=== PATIENT | male | born 1965 | race Caucasian/White ===

== ENCOUNTER 2023-03-24 13:11 | Emergency (ER) | payer OTHER, SELFPAY ==
[2023-03-24 13:19] VITALS: BP 156/84
[2023-03-24 13:35] LABS: % Basophils 0.5 % (0-2); % Eosinophils 0.8 % (0-6); % Immature Granulocytes 0.5 % (0-0.5); % Monocytes 7.2 % (1.7-9.3); Absolute Eosinophils 0.1 10^3/uL (0-0.7); Absolute Lymphocytes 1.4 10^3/uL (1.2-3.4); Absolute Monocytes 0.4 10^3/uL (0.1-0.6); Absolute Neutrophils 4.1 10^3/uL (1.4-6.5); Hematocrit 44.9 % (39.0-52.0); Hemoglobin 15.4 g/dL (13.0-18.0); Mean Corp Hgb Conc. 34.3 g/dL (33.0-37.0); Mean Corpuscular Volume 87.5 fL (80.0-94.0); Mean Platelet Volume 9.1 fL (7.4-10.4); Nucleated Red Blood Cells % 0 % (-); Platelet Count 187 10^3/uL (130-400); Red Blood Cell Count 5.13 10^6/uL (4.70-6.10); White Blood Cell Count 6.1 10^3/uL (4.8-10.8)
[2023-03-24 14:00] LABS: Troponin I < 0.012 ng/ml
[2023-03-24 14:12] LABS: ALT (SGPT) 27 U/L (0-50); AST (SGOT) 33 U/L (17-59); Albumin 4.9 g/dl (3.5-5.0); Alkaline Phosphatase 71 U/L (38-126); Blood Urea Nitrogen 22 mg/dl (9-20); Calcium 10.3 mg/dl (8.4-10.2); Carbon Dioxide 29 mmol/L (22-30); Chloride 103 mmol/L (98-107); Glucose 95 mg/dl (70-99); Potassium 4.6 mmol/L (3.5-5.1); Sodium 138 mmol/L (135-145); Total Bilirubin 1.1 mg/dl (0.2-1.3); Total Protein 7.6 g/dl (6.3-8.2); eGFR > 60.00
[2023-03-24 17:29] VITALS: BP 136/91
--- NOTE | 2023-03-24 17:55 | ED.GENMED ---
History of Present Illness
General
Chief Complaint: Chest Pain
Source: patient and spouse
Exam Limitations: none
Time Seen by Provider: 03/24/23 17:19
Nursing documentation reviewed up to this point in time: agreed with
Travel History
Have you had any contact with someone who has COVID-19?: No
Do you have any symptoms of coronavirus? Fever > 100 degrees, chills, cough, shortness of breath, sore throat, loss of taste or smell, muscle aches, or headache?: No
History of Present Illness
History of Present Illness:
58-year-old male with history of migraines, prostate cancer, early onset Alzheimer's getting infusions every other week of Leqembi, last infusion 03/13, due 03/27 for next. Was at gym, just finished run/walking 4 miles on treadmill when he had pain
across mid chest and left arm with 'hot feeling' and mild nausea. Episode lasted 10 minutes. None since.
Past History
Past History
ED Past Medical History: Cancer (prostate) and Psychiatric (Early onset Alzheimer's)
ED Past Surgical History: Orthopedic and Urological (prostatectomy 06/2020)
Social History
Tobacco: Non-smoker
Alcohol: None
Drug: None
Personal:
Living: with family
Review of Systems
Review of Systems
Allergies reviewed?: Yes
All Other Systems: ROS reviewed and negative except as documented in HPI and ROS
Constitutional: Denies fever, fatigue or chills
Respiratory: Denies trouble breathing
Cardiac: Reports chest pain; Denies diaphoresis, palpitations or syncope
ABD/GI: Reports nausea; Denies abdominal pain or vomiting
: Reports no symptoms
Musculoskeletal: Reports no symptoms
Skin: Reports no symptoms
Neurological: Reports no symptoms
Phy Exam
Physical Exam
Physical Exam:
GENERAL: No acute distress. A&Ox3.
CONSTITUTIONAL: Afebrile.
EYES:clear, conjunctivae normal
RESPIRATORY: Regular respirations, nonlabored, lungs clear.
CARDIOVASCULAR: Regular rate and rhythm, no murmurs, no rubs.
GI: Soft, nontender, normal BS
MUSCULOSKELETAL: Moves with ease. Well perfused.
SKIN: Warm, dry, pink
PSYCH: Normal mood and affect. Well kept, interactive and appropriate
NEUROLOGIC: Awake, alert and oriented. No focal neurological deficits
Scores
Heart Score for Chest Pain Patients
STEMI patient?: No
History: Slightly or Non-Suspicious
ECG: Normal
Age: >45 - <65 years
Risk Factors: No Risk Factors
Troponin: </= Normal Limit
Heart Score for Chest Pain Patients: 1
Heart Score Risk: 2.5% MACE over next 6 weeks
Course
Orders/Labs/Results
Orders:
Orders
03/24/23 13:14
Electrocardiogram (*1) Urgent
Reason for Study: Chest Pain
EKG- Treatment ONCE
03/24/23 13:27
Complete Blood Count/With Diff Urgent
Comprehensive Metabolic Panel Urgent
Troponin I Urgent
03/24/23 16:52
CR Chest - 2 Views Urgent
Comment:
Reason For Exam: chest pain
03/24/23 18:18
Troponin I Urgent
03/24/23 18:43
Electrocardiogram (*1) Urgent
Reason for Study: Chest Pain
Other Reason for Exam: repeat with 2nd trop
EKG- Treatment ONCE
Abnormal Lab Results
03/24/23
13:27
BUN 22 H mg/dl
(9-20)
Calcium 10.3 H mg/dl
(8.4-10.2)
03/24/23 13:27
03/24/23 13:27
Vital Signs
Initial and Last Documented VS:
Initial Vital Signs
Temp Pulse Resp BP Pulse Ox
97.8 F 54 16 156/84 98
03/24/23 13:19 03/24/23 13:19 03/24/23 13:19 03/24/23 13:19 03/24/23 13:19
Last Documented Vital Signs
Temp Pulse Resp BP Pulse Ox
97.8 F 54 13 160/94 99
03/24/23 13:19 03/24/23 19:08 03/24/23 17:30 03/24/23 19:08 03/24/23 17:30
MDM/Problems Addressed
Differential Diagnosis Includes:
ACS, angina, musculoskeletal pain
MDM/Problems Addressed:
58-year-old male with history of migraines, prostate cancer, prostatectomy, early onset Alzheimer's getting infusions every other week of Leqembi, last infusion 03/13, due 03/27 for next. Was at gym, just finished run/walking 4 miles on treadmill when
he had pain across mid chest with 'hot feeling' and mild nausea. Episode lasted 10 minutes. None since.
Afebrile, asymptomatic, NAD
03/24/2023 1730 PM
CBC normal
CMP normal
Troponin #1 normal
EKG sinus bradycardia unchanged from last
03/24/2023 1859 PM
Second EKG unchanged
Troponin #2 normal
Patient referred to cardiac chest pain hotline
*Critical Care Note
Total Time (30-74mins, 75-104mins- exclusive of procedures): Not Applicable
ED Attending Note
-
Portions of this chart may have been created with voice recognition software.� Occasional wrong word or��sound alike� substitutions may have occurred due to the inherent limitations of voice recognition software.
Discharge Plan
Departure
Patient Disposition: Home (Routine Discharge)
Date of Disposition: 03/24/23
Time of Disposition: 19:00
Patient with high blood pressure during this ER visit?: Yes
Condition: Good
Discharge Problem:
Atypical chest pain
Instructions: Chest Pain DCA Follow Up, BLOOD PRESSURE
Prescriptions:
No Action
phenazopyridine 200 MG tablet
200 mg PO TIDPRN PRN (Reason: burning with urination) Qty: 15 0RF
Referrals:
Gallito Larkin MD [Active] - Next open appointment
Brian Mittal MD [Active] - Next open appointment
Activity Restrictions/Additional Instructions:
As we discussed, nothing worrisome in your workup here today. Specifically no indication of a heart attack.
Someone from the cardiology office should call you within the next day or 2 to set up a more thorough cardiac evaluation
Return here immediately for worsening chest pain or feeling worse in any way
Interventions
Interventions:
*Risk Screen - Suicide Last Done: 03/24/23 13:19
*General Assessment Last Done: 03/24/23 13:19
*Neglect/Abuse Screening Last Done: 03/24/23 13:19
ED- Fall Risk Assessment Last Done: 03/24/23 17:26
*ED COVID-19 Vaccine History Last Done: 03/24/23 17:26
*Nursing Disposition Last Done: 03/24/23 19:08
ED- Cardiac Assessment Last Done: 03/24/23 17:26
Discharge Date and Time
Discharge Date/Time: 03/24/23 19:09
[2023-03-24 18:48] LABS: Troponin I < 0.012 ng/ml
[2023-03-24 18:52] VITALS: BP 160/94
[2023-03-24 19:07] VITALS: BP 160/94
[2023-03-24 19:08] VITALS: BP 160/94
== END 2023-03-24 19:09 | disposition home or self-care (01) ==
LOC: EMR 13:11
PROVIDERS: Registered Nurse; Student in an Organized Health Care Education/Training Program; EMERGENCY PHYSICIAN Emergency Medicine; FAMILY PHYSICIAN Family Medicine
DX: R07.89 Other chest pain (principal); R03.0 Elevated blood-pressure reading, without diagnosis of hypertension
CPT/HCPCS: 99285; 71046; 80053; 84484; 85025; 93005

== ENCOUNTER → 2023-03-28 16:29 | Outpatient (REF) | payer OTHER, SELFPAY | LOC: PAVMRI 16:29 | PROVIDERS: ATTENDING PHYSICIAN Psychiatry & Neurology Behavioral Neurology & Neuropsychiatry; FAMILY PHYSICIAN Family Medicine | DX: G30.9 Alzheimer's disease, unspecified (principal) | CPT/HCPCS: 70551 ==

== ENCOUNTER → 2023-04-30 11:47 | Outpatient (REF) | payer OTHER, SELFPAY | LOC: PAVMRI 11:47 | PROVIDERS: ATTENDING PHYSICIAN Psychiatry & Neurology Behavioral Neurology & Neuropsychiatry; FAMILY PHYSICIAN Family Medicine | DX: G30.9 Alzheimer's disease, unspecified (principal) | CPT/HCPCS: 70551 ==

== ENCOUNTER → 2023-08-11 18:33 | Outpatient (REF) | payer OTHER, SELFPAY | LOC: PAVMRI 18:33 | PROVIDERS: ATTENDING PHYSICIAN Psychiatry & Neurology Behavioral Neurology & Neuropsychiatry; FAMILY PHYSICIAN Family Medicine | DX: G30.9 Alzheimer's disease, unspecified (principal) | CPT/HCPCS: 70551 ==

== ENCOUNTER 2023-10-02 10:45 | Emergency (ER) | payer OTHER, SELFPAY ==
[2023-10-02 10:47] VITALS: BP 120/72
[2023-10-02 11:01] VITALS: BP 117/69
[2023-10-02] MEDS: NSS 1000 IV ×2 (11:14→14:22)
[2023-10-02 11:15] LABS: % Basophils 0.5 % (0-2); % Eosinophils 0.8 % (0-6); % Immature Granulocytes 0.5 % (0-0.5); % Lymphocytes 29.9 % (20.5-51.1); % Monocytes 7.5 % (1.7-9.3); % Neutrophils 60.8 % (42.2-75.2); Absolute Lymphocytes 1.2 10^3/uL (1.2-3.4); Absolute Monocytes 0.3 10^3/uL (0.1-0.6); Absolute Neutrophils 2.3 10^3/uL (1.4-6.5); Hemoglobin 14.3 g/dL (13.0-18.0); Mean Corp Hgb Conc. 35.8 g/dL (33.0-37.0); Mean Platelet Volume 9.7 fL (7.4-10.4); Nucleated Red Blood Cells % 0 % (-); Platelet Count 157 10^3/uL (130-400); Red Blood Cell Count 4.76 10^6/uL (4.70-6.10); Red Cell Dist. Width 12.6 % (11.5-14.5); White Blood Cell Count 3.9 10^3/uL (4.8-10.8)
[2023-10-02] MEDS: DILAUDID 1 MG IV (11:15)
[2023-10-02] MEDS: ZOFRAN 4 MG IV ×2 (11:15→14:23)
--- NOTE | 2023-10-02 11:20 | ED.GENMED ---
History of Present Illness
General
Chief Complaint: Flank Pain
Source: patient and family
Exam Limitations: dementia
Time Seen by Provider: 10/02/23 10:53
Nursing documentation reviewed up to this point in time: agreed with
History of Present Illness
History of Present Illness:
pt is a 58 y/o M with h/o early onset alzheimers dementia
sudden severe L back pain
started after returning home from the gym. he was by himself and drove home and when he got home spoke with his daughter and seemed fine, and then 10 min later called his son and said he was in severe kenny, pt was crying, saying his side/back hurt
son called 911
called and spoke with patient and also says he was in severe pain
pt is at his baseline mental status according to , he was having trouble answering some EMS questions but when he gts flustered
he doesn't recall hurting himself while at the gym
no radiation of pain seemingly in abdomen, groin, leg
no cp, sob
no fever
no h/o kidneystones but he does have some issues with mild CKD
Past History
Past History
ED Past Medical History: Cancer (prostate) and Psychiatric (Early onset Alzheimer's)
ED Past Surgical History: Orthopedic and Urological (prostatectomy 06/2020)
Social History
Tobacco: Non-smoker
Alcohol: None
Drug: None
Personal:
Living: with family
Review of Systems
Review of Systems
Allergies reviewed?: Yes
All Other Systems: Not applicable
Phy Exam
Physical Exam
Physical Exam:
GENERAL: Alert, uncomfortable, shifting inth estretcher
Neck: supple
CARDIAC: Regular rate and rhythm .
LUNGS: Clear breath sounds bilaterally, no acute respiratory distress, no wheezes/rales/rhonchi
ABDOMEN: Soft, normal bowel sounds, nondistended, nontender, no guarding, no rebound, neg soto's
back: nontnder, full rom of legs, strength and sensation intact
: normal inspection of region
nontender testicles b/l
no rashes
NEUROLOGICAL: Alert and oriented, no focal neuro deficits
SKIN: Warm and dry, skin intact.
PSYCH: Normal and appropriate interaction.
Course
Orders/Labs/Results
Orders:
Orders
10/02/23 11:05
CBC/With Diff [Complete Blood Count/With Diff] Urgent
CMP [Comprehensive Metabolic Panel] Urgent
Lipase Urgent
Comment: ADD ON
10/02/23 11:08
Ondansetron Injectable [Zofran] 4 mg .ROUTE .STK-MED ONE
10/02/23 11:09
HYDROmorphone [Dilaudid] 1 mg .ROUTE .STK-MED ONE
10/02/23 11:10
0.9% Sodium Chloride 1000 ml [Nss] 1,000 ml IV BOLUS
HYDROmorphone [Dilaudid] 1 mg IV NOW STA
Ondansetron Injectable [Zofran] 4 mg IV NOW STA
10/02/23 11:11
Add On- LAB Urgent
Tests Added?: lipase
Electrocardiogram (*1) Urgent
Reason for Study: Abdominal Pain
EKG- Treatment ONCE
10/02/23 11:43
Morphine Sulfate 4 mg IV NOW STA
10/02/23 11:58
Urinalysis Reflex To Culture Urgent
Date Specimen was Collected: 10/02/23
Time Specimen was Collected: 11:51
Urine Microscopic Reflex Cult Urgent
10/02/23 12:28
CT Abd/pel Without Iv Or Oral Urgent
Comment:
Reason For Exam: L sided back pain, severe suspect kidney stone
10/02/23 14:01
Tamsulosin [Flomax] 0.4 mg PO NOW STA
10/02/23 14:14
0.9% Sodium Chloride 1000 ml [Nss] 1,000 ml IV BOLUS
Ondansetron Injectable [Zofran] 4 mg IV NOW STA
Oxycodone/Acetaminophen [Percocet 5/325] 1 tablet PO NOW STA
Abnormal Lab Results
10/02/23 10/02/23
11:05 11:58
WBC 3.9 L 10^3/uL
(4.8-10.8)
BUN 25 H mg/dl
(9-20)
Creatinine 1.4 H mg/dL
(0.7-1.3)
Glucose 120 H mg/dl
(70-99)
Urine Ketones Trace A
(Negative)
Leukocyte Esterase Rfl Trace A
(Negative)
10/02/23 11:05
10/02/23 11:05
Vital Signs
Initial and Last Documented VS:
Initial Vital Signs
Temp Pulse Resp BP Pulse Ox
97.7 F 62 18 120/72 100
10/02/23 10:47 10/02/23 10:47 10/02/23 10:47 10/02/23 10:47 10/02/23 10:47
Last Documented Vital Signs
Temp Pulse Resp BP Pulse Ox
97.7 F 61 19 117/69 98
10/02/23 10:47 10/02/23 11:45 10/02/23 11:45 10/02/23 11:01 10/02/23 11:30
MDM/Problems Addressed
Differential Diagnosis Includes:
kidney stone, aortic dissection
MDM/Problems Addressed:
58 y/o M with h/o early onset dementia
from home via EMS for severe sudden L back pain nonradiating, diaprhoesis, nausea
pt got 15 mg of iv toradol but is in a lot of discomfort
recnet exercise at the gym
no h/o kidney stones but cr is usually 1.3 and he has seen nephrology
nothing makes it better
no fever, chills
normal vitals desite pt looking rather uncomfortable
normal strength and snesation to legs, unlikely dissection
seems to be c/w kidney stone, waxing waning renal colic
ivf, pain control, labs, urine ct..
Patient's IV dose of Dilaudid did not really helpful
cr 1.4, will avoid nsaids
he does seem to have periods of pain-fee time, which is likey from the colicky nature
the ct does show distal 2 mm stone with hydro (severe)
ua very reassuring no infection
wbc normal
this stone should pass
but pt seemed to be having worse pain again so i gave more IVF, flomax, ,oral oxy, zofran and will reassess
it seems like his dementia makes it hard for him to understrand what's zach on and he seems anxious and agitated by the pain and not remembering what it is due to
10/02/2023 1551 PM
Patient was resting comfortably. He still says he has some pain but it is controlled with pain medication orally. Will discharge home with oxycodone, Tylenol, Flomax, Zofran and family is aware to bring him back if he is having worsening pain.
Follow-up with urology encouraged. Strainer given
*Critical Care Note
Total Time (30-74mins, 75-104mins- exclusive of procedures): Not Applicable
ED Attending Note
-
Portions of this chart may have been created with voice recognition software.� Occasional wrong word or��sound alike� substitutions may have occurred due to the inherent limitations of voice recognition software.
Discharge Plan
Departure
Patient Disposition: Home (Routine Discharge)
Date of Disposition: 10/02/23
Time of Disposition: 15:45
Patient with high blood pressure during this ER visit?: No
Condition: Fair
Covid-19: Not Applicable
Discharge Problem:
Ureterolithiasis
Instructions: Kidney Stones (DC), How to Strain Your Urine
Prescriptions:
New
oxycodone 5 mg tablet
5 mg PO TID PRN (Reason: Pain) Qty: 15 0RF
ondansetron 4 mg tablet,disintegrating
4 mg PO Q8H PRN (Reason: nausea and vomiting) 2 Days Qty: 7 0RF
tamsulosin [Flomax] 0.4 mg capsule
0.4 mg PO DAILY Qty: 10 0RF
No Action
phenazopyridine 200 MG tablet
200 mg PO TIDPRN PRN (Reason: burning with urination) Qty: 15 0RF
Referrals:
Gallito Larkin MD [Active] - Follow up in 1 week
Angella Farrell MD [Family Provider] -
Activity Restrictions/Additional Instructions:
KEEP STAYING HYDRATED
TAKE FLOMAX 0.4 MG ONCE A DAY UNTIL YOU PASS THE STONE
URINATE THROUGH THE STRAINER EACH TIME YOU PEE
TAKE TYLENOL 2 EXTRA STRENGTH TABS 3 TIMES A DAY FOR PAIN
IF PAIN IS SEVERE YOU CAN TRY OXYCODONE 5 MG EVERY 6 HOURS NEEDED, THIS IS A NARCOTIC AND YOU CANNOT DRIVE OR DRINK ON THIS MEDICATION.
ZOFRAN EVERY 8 HOURS NEEDED FOR NAUSEA.
HOPEFULLY THE STONE PASSES WITHIN THE NEXT DAY
CALL UROLOGY FOR AN APPOINTMENT
RETURN FOR: SEVERE PAIN, VOMITING, FEVER, NOT URINATING OR ANY CONCERNS.
Interventions
Interventions:
*Risk Screen - Suicide Last Done: 10/02/23 10:47
*General Assessment Last Done: 10/02/23 10:47
*Neglect/Abuse Screening Last Done: 10/02/23 10:47
ED- Fall Risk Assessment Last Done: 10/02/23 10:48
HG-Cxaqpu-Sxjserriwq Assessment Last Done: 10/02/23 10:48
ED-Male Genitourinary Assessment Last Done: 10/02/23 10:48
Discharge Date and Time
Print Language: KINYARWANDA
[2023-10-02 11:30] LABS: ALT (SGPT) 19 U/L (0-50); AST (SGOT) 27 U/L (17-59); Albumin 4.5 g/dl (3.5-5.0); Alkaline Phosphatase 62 U/L (38-126); Blood Urea Nitrogen 25 mg/dl (9-20); Carbon Dioxide 22 mmol/L (22-30); Chloride 105 mmol/L (98-107); Estimated Creatinine Clearance 59 ml/min; Glucose 120 mg/dl (70-99); Lipase 94 U/L (23-300); Sodium 136 mmol/L (135-145); Total Bilirubin 1.3 mg/dl (0.2-1.3); Total Protein 6.7 g/dl (6.3-8.2); eGFR 58.99
[2023-10-02 12:15] LABS: Urine Albumin Negative (Neg - Trace); Urine Bilirubin Negative (Negative); Urine Character Clear (Clear); Urine Color Yellow; Urine Glucose Negative (Negative); Urine Ketone Trace (Negative); Urine Leukocyte Trace (Negative); Urine Nitrite Negative (Negative); Urine Occult Blood Negative (Negative); Urine Urobilinogen Negative (Neg - 1+)
[2023-10-02 12:36] LABS: Urine Squamous Cell 0-2 /LPF (Few)
[2023-10-02 12:37] LABS: Urine Red Blood Cell 0-2 /HPF (0-2); Urine White Cell 0-2 /HPF (0-5)
[2023-10-02 13:08] VITALS: BP 143/70
[2023-10-02] MEDS: MORPHINE SULFATE 4 MG IV (13:11)
[2023-10-02 14:00] VITALS: BP 106/70
[2023-10-02] MEDS: FLOMAX 0.4 MG PO (14:11)
[2023-10-02] MEDS: PERCOCET 5/325 1 TABLET PO (14:23)
[2023-10-02 15:00] VITALS: BP 149/81
== END 2023-10-02 16:27 | disposition home or self-care (01) ==
LOC: EMR 10:45
PROVIDERS: Physician Assistant; EMERGENCY PHYSICIAN Emergency Medicine; FAMILY PHYSICIAN Family Medicine
DX: M54.9 Dorsalgia, unspecified (principal); G30.0 Alzheimer's disease with early onset; F02.80 Dementia in other diseases classified elsewhere, unspecified severity, without behavioral disturbance, psychotic disturbance, mood disturbance, and anxiety; Z90.79 Acquired absence of other genital organ(s)
CPT/HCPCS: 99284; 96374; 96375; 96376; 96361; 74176; 80053; 81003; 81015; 83690; 85025; 93005

== ENCOUNTER 2024-10-18 16:47 | Inpatient (IN) | payer OTHER, SELFPAY ==
[2024-10-18] VITALS (26 sets, daily range): BP systolic 101–162; BP diastolic 58–109; BMI 25.6; BMI 24.9
[2024-10-18 12:15] LABS: Hematocrit 43.1 % (39.0-52.0); Hemoglobin 14.5 g/dL (13.0-18.0); Mean Corp Hgb Conc. 33.6 g/dL (33.0-37.0); Mean Corpuscular Volume 84.7 fL (80.0-94.0); Nucleated Red Blood Cells % 0 % (-); Platelet Count 206 10^3/uL (130-400); Red Cell Dist. Width 12.2 % (11.5-14.5)
[2024-10-18 12:29] LABS: ALT (SGPT) 17 U/L (0-50); AST (SGOT) 20 U/L (17-59); Albumin 4.7 g/dl (3.5-5.0); Alkaline Phosphatase 53 U/L (38-126); Blood Urea Nitrogen 16 mg/dl (9-20); Calcium 9.7 mg/dl (8.4-10.2); Carbon Dioxide 25 mmol/L (22-30); Chloride 104 mmol/L (98-107); Estimated Creatinine Clearance 68 ml/min; Glucose 146 mg/dl (70-99); Magnesium 2.2 mg/dl (1.6-2.3); Potassium 3.9 mmol/L (3.5-5.1); Sodium 138 mmol/L (135-145); Total Protein 7.1 g/dl (6.3-8.2); eGFR > 60.00
[2024-10-18 12:39] LABS: Troponin I < 0.012 ng/ml
--- NOTE | 2024-10-18 12:44 | ED.GENMED ---
History of Present Illness
General
Chief Complaint: Dizziness
Source: patient
Exam Limitations: none
Time Seen by Provider: 10/18/24 12:25
History of Present Illness
History of Present Illness:
59-year-old male to with history of early onset dementia presents with family after family noticed at 10 AM this morning he had a change in mental status. He has been responding to their questions. He typically is able to talk and hold a
conversation but there is something new. He is on the infusion Leqembi which is known to cause potential microhemorrhages or hemorrhages in the brain. His last infusion was 3 weeks ago. Patient unable to tell me if he has a headache. There was
vomiting prior to presentation. No fevers or illness recently.
Past History
Past History
ED Past Medical History: Cancer (prostate) and Psychiatric (Early onset Alzheimer's)
ED Past Surgical History: Orthopedic and Urological (prostatectomy 06/2020)
Social History
Tobacco: Non-smoker
Alcohol: None
Drug: None
Personal:
Living: with family
Phy Exam
Physical Exam
Physical Exam:
General: Well-developed male no acute respiratory distress
HEENT normocephalic face is symmetric mucosa moist heart: Regular rate and rhythm
Lungs: Clear no wheeze
Neurologic exam: Responds to questions. No obvious unilateral deficit. Pupils equal round reactive to light
Extremities: No cyanosis
Course
Orders/Labs/Results
Orders:
Orders
10/18/24 11:48
EKG [Electrocardiogram (*1)] Urgent
Reason for Study: Chest Pain
10/18/24 11:49
EKG- Treatment ONCE
10/18/24 11:51
Complete Blood Count/With Diff Urgent
Comprehensive Metabolic Panel Urgent
Magnesium Urgent
Troponin I Urgent
10/18/24 12:40
CT Head W/o Iv Contrast Urgent
Comment:
Reason For Exam: altered mental status
10/18/24 12:46
Urinalysis Reflex To Culture Urgent
Date Specimen was Collected: 10/18/24
Time Specimen was Collected: 12:49
Abnormal Lab Results
10/18/24
11:51
Absolute Monos (auto) 0.8 H 10^3/uL
(0.1-0.6)
Monocytes % 16.1 H %
(1.7-9.3)
Glucose 146 H mg/dl
(70-99)
10/18/24 11:51
10/18/24 11:51
Vital Signs
Initial and Last Documented VS:
Initial Vital Signs
Temp Pulse Resp BP Pulse Ox
98.6 F 59 17 135/77 97
10/18/24 11:43 10/18/24 11:43 10/18/24 11:43 10/18/24 11:43 10/18/24 11:43
Last Documented Vital Signs
Temp Pulse Resp BP Pulse Ox
98.6 F 64 16 135/77 97
10/18/24 11:43 10/18/24 11:48 10/18/24 11:48 10/18/24 11:43 10/18/24 12:46
MDM/Problems Addressed
Differential Diagnosis Includes:
Sudden onset and change mental status. History of early onset dementia now with difficulty talking almost aphasic. No unilateral weakness noted otherwise. He is on Leqembi which can cause microhemorrhages. CT of the head was ordered and
discussed with neurology who recommends admitting and starting steroids for possible ARIA findings related to the medications.
*Pulse Oximetry
SaO2: 97
Oxygen Mode of Delivery: Room air
Patient hypoxic: no
*Critical Care Note
Total Time (30-74mins, 75-104mins- exclusive of procedures): Not Applicable
Update Note
Update Note:
CT of the head shows no acute intracranial findings. Patient reexamined. Still off from baseline. Discussed with neurology who recommends admitting the patient for an MRI of his brain to evaluate for possible amyloid related imaging abnormalities
secondary to the Leqembi. Hospitalist made aware.
ED Attending Note
-
Portions of this chart may have been created with voice recognition software.� Occasional wrong word or��sound alike� substitutions may have occurred due to the inherent limitations of voice recognition software.
Discharge Plan
Departure
Patient Disposition: Admit
Date of Disposition: 10/18/24
Time of Disposition: 13:17
Presentation/result/management discussed w/ accepting MD/DO: Hospitalist
Patient with high blood pressure during this ER visit?: No
Discharge Problem:
Altered mental status
Prescriptions:
No Action
donepezil 5 mg Tablet
5 mg PO HS
escitalopram oxalate 10 mg Tablet
10 mg PO DAILY
memantine 10 mg Tablet
10 mg PO BID
brexpiprazole 2 mg Tablet
2 mg PO DAILY
Leqembi 100 mg/mL Solution
600 mg IV Q2W
Interventions
Interventions:
*Risk Screen - Suicide Last Done: 10/18/24 11:43
*General Assessment Last Done: 10/18/24 11:43
*Neglect/Abuse Screening Last Done: 10/18/24 11:43
*ED- Fall Risk Assessment Last Done: 10/18/24 11:43
*ED COVID-19 Vaccine History Last Done: 10/18/24 11:43
ED- Neurological Assessment Last Done: 10/18/24 11:43
ED- Cardiac Assessment Last Done: 10/18/24 11:43
ED Swallowing Screen Last Done: 10/18/24 11:43
Discharge Date and Time
Print Language: ROMANSH
--- NOTE | 2024-10-18 14:09 | PHANOTE ---
med rec note- patient spouse stated he stopped rexulti 2mg daily about 4 days ago and b12 vitamin about 2 days ago
[2024-10-18 14:50] LABS: Urine Character Clear (Clear)
[2024-10-18 15:20] LABS: Urine Red Blood Cell 0-2 /HPF (0-2)
--- NOTE | 2024-10-18 15:22 | HPS.HSE ---
Addendum entered and electronically signed by Kris Walker MD 10/18/24 20:12:
Attending Addendum-
I performed a history and physical exam of the patient and discussed his management with the resident. I reviewed the resident's note and agree with the documented findings and plan of care CC/HPI-Patient arrived to ED via EMS due to cims this am.
Family present on history taking. Per family patient wasn't acting himself was dizzy and 'couldn't move his legs' was also seen to have eyes roll back in the back of his head. Self resolved. prior to seizure patient was conversant with no aura or
complaints. Does have poor memory at baseline subsequently had a few more seizure episodes in the ed. was given total @ 15 of versed, keppra load, and decision was made to start ketamine and transfer to ICU. Full 12 point ROS reviewed and negative
except as documented Exam- vitals reviewed in EMR GEN- NAD heart RRR lungs clear abd soft LE no edema AAO x 1 MS 5/5 sensation intact no tongue lac no tremor
Plan:
# Refractory Status Epilepticus
- seizure x 2 back to back 3 total today
- versed @ 15mg given
- start keppra load, start ketamine push
- consult neuro for eval
- start solumedrol in case of ARIA-E
- check MRI w/w/o contrast and EEG
- transfer to ICU, high likelihood of requiring prophylactic intubation
# Early Onset Alzheimer disease
- cont memantine and donepezil
# Depression
-cont lexapro
#H/O prostate ca
DVT proph SCDs
ACP
Patient consented to discuss, was with and POA, time spent explanation of advance directives, changes in health status, patient�s health care wishes if the patient becomes unable to make health decisions, goals of care, code status, and
prognosis 'Ill do what she says' expresses desire for patient to be full code- 16 minutes
CC Note
Due to a high probability of clinically significant, life-threatening deterioration, the patient required a high level of preparedness to intervene emergently. I personally spent this critical care time directly and personally managing the patient.
This critical care time included obtaining a history; examining the patient; ordering and review of studies and STAT labs; arranging urgent treatment with development of a management plan; evaluation of patient's response to treatment; reassessment;
and, discussions with other providers.
This critical care time was performed to assess and manage the high probability of imminent, life-threatening deterioration that could result in multi-organ failure. It was exclusive of separately billable procedures and treating other patients and
teaching time. Total time documented is also exclusive of any additional time listed that was spent in advance care planning discussion
Total critical care time: Approximately 32 minutes
Original Note:
Family Physician
-
Family Physician: Angella Farrell
Chief Complaint
-
Altered Mental Status post Seizure
History of Present Illness
59 year old male with a past medical history of early onset Alzheimer's dementia came to the hospital today due to altered mental status that began around 10:30am this morning. Patient was feeling dizzy, lost control of his limbs and could not talk.
One of his family members saw his eyes roll back in his head and also saw shivering. His family was very worried as he was much worse than his baseline and called the EMS services.When he arrived in the ED, he was unresponsive and non-conversant. As
he stayed there for a few hours, his symptoms began to resolve and he returned barback to his baseline. Patient was able to converse with me and said that felt like he blacked out and didn't remember anything from this altered mental status
episode. He had never had anything like this in the past and reported no current headaches. Patient's primary neurologist is Dr. Brian Chery form [facility] and he has been helping the patient manage his Alzheimer's dementia with infusions
of Leqembi every 2 weeks. Patient's last dose of the medication was 3 weeks ago but he has been on the medication since late 2022. He also gets a brain MRI every 4th infusion to check for AIRA. Patient's family reveal that he had a Shingles shot
this past Friday.
Medical History
Past Medical History
Past Medical History: Reports Other (Early Onset Alzheimer's Dementia)
Past Surgical History: Reports Orthopedic and Urological (Prostate Cancer)
Social History
Tobacco: Non-smoker
Alcohol: None
Drug: None
Personal:
Living: With Family
Family History
Family History: Other (Lewy Body Dementia)
Allergies / Home Medications
Allergies reflects when Allergies were last updated in Language Learning Class.
Home Medications with original date entered in Language Learning [employer]
Allergy/Medication List:
Allergies
Allergy/AdvReac Type Severity Reaction Status Date / Time
sulfite Allergy migraines Verified 10/02/23 10:47
Home Medications
donepezil 5 mg tablet 5 mg PO HS 10/18/24
escitalopram oxalate 10 mg tablet 10 mg PO QPM 10/18/24
lecanemab-irmb 100 mg/mL intravenous solution (Leqembi) 600 mg IV Q2W 10/18/24
memantine 10 mg tablet 10 mg PO HS 10/18/24
Review of Systems
-
History Source: Patient and Family
A 12 point ROS was completed and negative except as noted: Yes
Constitutional: Reports No Symptoms
EENT: Reports No Symptoms
Respiratory: Reports No Symptoms
Cardiac: Reports No Symptoms
Abdomen/GI: Reports No Symptoms
: Reports No Symptoms
Musculoskeletal: Reports No Symptoms
Skin: Reports No Symptoms
Neurological: Reports No Symptoms
Endocrine: Reports No Symptoms
Hematologic/Lymphatic: Reports No Symptoms
Psych: Reports Calm
Physical Exam
Vital Signs
Vital Signs
Temp Pulse Resp BP Pulse Ox
98.2 F 76 16 115/81 99
10/18/24 14:34 10/18/24 14:34 10/18/24 14:34 10/18/24 14:34 10/18/24 14:34
Physical Exam
General: Well Developed, Well Nourished, No Apparent Distress and Conversant
HEENT: NormoCephalic and Anicteric
Respiratory: Clear and Non Labored Respirations
Cardiac: S1/S2 and Regular Rhythm; No Murmur
GI: Soft, Non Tender, Non Distended and Normal Bowel Sounds
Musculoskeletal: No Clubbing, No Cyanosis and No Edema
Skin: Warm and Dry
Neuro: Awake, Alert, Oriented, AO x 3, No Motor Deficits, No Sensory Deficits and Slurred Speech (Mild slurring of speech)
Psych: Calm and Intact Judgment/Insight
Laboratory Results
-
10/18/24 11:51
10/18/24 11:51
Laboratory Results
Total Bilirubin 1.0 mg/dl (0.2-1.3) 10/18/24 11:51
AST 20 U/L (17-59) 10/18/24 11:51
ALT 17 U/L (0-50) 10/18/24 11:51
Alkaline Phosphatase 53 U/L (38-126) 10/18/24 11:51
Troponin I < 0.012 ng/ml 10/18/24 11:51
Data Reviewed
-
CT Scan: Report Reviewed by me, Discussed with Physician, Discussed with Patient and Discussed with Family
Lab Data: Discussed with Physician, Discussed with Patient and Discussed with Family
Impression/Plan
-
Assessment:
59 year old male with a past medical history of early onset Alzheimer's dementia comes to the ED due to recent change in mental status. Patient was found to very nonresponsive at first in the ED, not conversant at all. His symptoms seem to resolve
and he returned almost back to his baseline with some mild slurring of speech. Labs and CT head were unremarkable.
PLAN:
#Altered mental status with possible seizure most likely from medication side effect
-Mental status much improved
-Neurology consulted, recommend admission for MRI
-Will start IVF due to Ketones seen in UA (Possibly from dehydration vs not eating well)
-Ordered MRI w/o IV contrast
-Will check EEG
-ARIA related changes, no steroids indicated at this time due to improved mental status
#Early Onset Alzheimer's Dementia
-Discussed with Neuro and can continue home medications of Donepezil, Escitalopram and Memantine
Full Code
DVT Prophylaxis: SCDs
--- NOTE | 2024-10-18 16:44 | EDRN ---
this RN called the receiving unit and notified them that paper report was going to be tubed up
[2024-10-18] MEDS: VERSED 5 MG IV ×3 (17:01→17:22)
--- NOTE | 2024-10-18 17:02 | EDRN ---
this RN was notified that the pt started to seize, provider notified, Keppra and Versed ordered, seizure precautions put in place
[2024-10-18] MEDS: KEPPRA 1000 MG IV ×2 (17:03→20:40)
[2024-10-18] MEDS: KEPPRA 3000 MG IV (17:22)
[2024-10-18] MEDS: KETALAR 120 MG IV (17:40)
--- NOTE | 2024-10-18 17:44 | EDRN ---
Dr. Carlos applying [facility] currently, this RN on the phone with ICU giving verbal report
--- NOTE | 2024-10-18 17:46 | W.PN.UPDATE ---
Update Note
Progress Note Update
Following seeing patient, an hour afterwards he had a witness seizure while in the ED. Witnessed by the ED nursing staff and Family. Patient became unresponsive, started shivering and shaking.Went to examine patient and he did not seem to have any
post-ictal symptoms. He was given a dose of Keppra and continued doses of Versed as per Neurology. MRI order changed from MRI Brain w/o contrast to w/ and w/o contrast. Given dose of Steroids and transferred to ICU for ketamine infusion.
[2024-10-18] MEDS: KETAMINE HCL 50 MG IV ×2 (17:49→21:40)
--- NOTE | 2024-10-18 18:05 | CON.NEURO ---
Addendum entered and electronically signed by Francisco Green MD 10/18/24 21:31:
7:27pm Spoke with Mp Reeves NP upon arriving in ICU patient not protecting his airway and was intubated, large amount of secretions suctioned.
patient examined and Ceribell tracing reviewed, and entire tracing ~1.5 hrs is low amplitude beta activity and some frontally predominant alpha activity.
this is exactly where I want him, will continue monitoring overnight
maintain Ketamine 0.7/kg overnight
check MRI brain w/o and w/ contrast and MRA head
anticipate tomorrow am attempt to wean ketamine and extubate
discussed with family all questions answered
additional 20' crit care spent
Original Note:
Neuro Assessment/Plan
Assessment
59 yr old man with Alz, on [facility], admitted for altered mental status and first time seizure. Suspected seizure due to ARIA-E as no hemorrhage seen on head CT. while still in the ED he went into refractory status epilepticus which ultimately
resolved after Versed 15 and Ketamine 1.5/kg push.
maintain cerebell
Ketamine gtt 0.7/kg
Solumedrol 1g x3 days
Keppra loaded
high complexity consult for initial evaluation
40' crit from 5:10 pm until 5:50 pm actively managing the patient for status epilepticus and answering family's questions in the process
Consultation
Order
Date of Consultation: 10/18/24
Requesting Provider: Sade
Reason for Consult: seizure
Subjective/Objective
Subjective Data
Date of Service: October 18, 2024
from h&p:
59 year old male with a past medical history of early onset Alzheimer's dementia came to the hospital today due to altered mental status that began around 10:30am this morning. Patient was feeling dizzy, lost control of his limbs and could not talk.
One of his family members saw his eyes roll back in his head and also saw shivering. His family was very worried as he was much worse than his baseline and called the EMS services.When he arrived in the ED, he was unresponsive and non-conversant. As
he stayed there for a few hours, his symptoms began to resolve and he returned tube backer to his baseline. Patient was able to converse with me and said that felt like he blacked out and didn't remember anything from this altered mental status
episode. He had never had anything like this in the past and reported no current headaches. Patient's primary neurologist is Dr. Brian Chery form [facility] and he has been helping the patient manage his Alzheimer's dementia with infusions
of Leqembi every 2 weeks. Patient's last dose of the medication was 3 weeks ago but he has been on the medication since late 2022. He also gets a brain MRI every 4th infusion to check for AIRA. Patient's family reveal that he had a Shingles shot
this past Friday.
I saw the patient with resident, Dr Peralta, ~3pm at which time the patient was back to baseline, conversant, eating a pretzel. my suspicion was for seizure due to Aria-E. As he was presently asymptomatic, I did not recommend giving steroids, and the
plan was to get noncontrast brain MRI and routine EEG.
Subsequently in the ED he had another witnessed seizure, status epilepticus at which time he got Versed 5 mg at 5:01 pm with resolution, and he did return back to baseline. I came to re-evaluate him at 5:10 pm, and the family reported that he had
been seizing for 10 minutes [sic] and so I gave him Versed 5 mg again 5:16 pm, and a third time at 5:22 pm. He continued seizing. At this point I have maxed out on Versed 0.2/kg, so refractory status epilepticus, so at 17:40 I pushed Ketamine 120
mg (1.5/kg) as the family did not want him intubated. at which point the seizures stopped, the patient is flaccid, snoring, unresponsive. he briefly desatured down to the low 90s but came back up again. Ceribell placed and initial tracing was flat.
he was started on Ketamine gtt at 0.7 with expectation that the sedation will lighten up. He is to be transferred to ICU. throughout the process he was also given Keppra 4 grams, and Solumedrol 1 gram for suspected ARIA-E
throughout this process multiple family memebers with innumerable questions which were answered
Objective Data
Vital Signs
Temp Pulse Resp BP Pulse Ox
37.0 C 80 20 115/92 99
10/18/24 16:00 10/18/24 17:31 10/18/24 17:31 10/18/24 17:31 10/18/24 17:31
Lab Results
10/18/24 11:51
10/18/24 11:51
Sodium 138 mmol/L (135-145) 10/18/24 11:51
Potassium 3.9 mmol/L (3.5-5.1) 10/18/24 11:51
BUN 16 mg/dl (9-20) 10/18/24 11:51
Glucose 146 mg/dl (70-99) H 10/18/24 11:51
Calcium 9.7 mg/dl (8.4-10.2) 10/18/24 11:51
Patient Allergies
sulfite Allergy (Verified 10/02/23 10:47)
migraines
Physical Exam
-
coma, flaccid, unresponsive, snoring. sats 98%
Medications
-
Active Medications
Generic Name Dose Route Start Last Admin
Trade Name Freq PRN Reason Stop Dose Admin
Ketamine HCl 500 mg/ Sodium 50 mls @ 0 mls/hr 10/18/24 18:00 10/18/24 17:49
Chloride IV 50 mls
PER PROTOCOL RUBEN Administration
Protocol
Per Protocol
Methylprednisolone Sodium 258 mls @ 258 mls/hr 10/18/24 17:28
Succinate 1,000 mg/ Sodium IV 10/18/24 18:27
Chloride NOW STA
Levetiracetam 1,000 mg 10/18/24 20:00
Levetiracetam (100 Mg/Ml) 500 Mg/5 Ml Vial IV 11/15/24 19:59
BID RUBEN
Home Medications
�Medication �Instructions �Recorded
donepezil 5 mg tablet 5 mg PO HS 10/18/24
escitalopram oxalate 10 mg tablet 10 mg PO QPM 10/18/24
lecanemab-irmb 100 mg/mL 600 mg IV Q2W 10/18/24
intravenous solution (Leqembi)
memantine 10 mg tablet 10 mg PO HS 10/18/24
[2024-10-18] MEDS: SOLU-MEDROL 258 MG IV (18:12)
[2024-10-18 18:47] LABS: Glucose - Point of Care 105 mg/dl (70-99)
[2024-10-18] MEDS: NSS 1000 IV (18:49)
--- NOTE | 2024-10-18 18:52 | PTCARENOTE ---
patient received from ED, ketamine per orders. patient shivering,moaning. rigid. cerebell in place. seizure burden 3%. monitor sinus with pvc. difficulty obtaining blood pressures due to trembling and rigid arms. nasal trumpet inserted. orally
suctioned for copious white secretions. condom cath applied. Quality Control Supervisor restaurant management internship at bedside. report to oncoming RN
--- NOTE | 2024-10-18 19:26 | W.PN.ANESINT ---
Anesthesia Intubation Note
- Intubation Note
Intubation Note:
Diagnosis:
Status epilipticus
Blade:
Mac 4
Tube Size:
8.0 Malicrot
Depth:
24cm teeth
Side Taped:
R
Drugs Used:
150mg Propofol, 160 succinylcholine
Grade View:
Grade 2a
EtCO2 Present:
Confirmed
Atraumatic:
Yes
Attempts:
1
Insertion Start and Stop Time:
1899 1902
SaO2 Pre: 100
SaO2 Post: 100
Glidescope Used: Yes
Other Airway Adjustments: N/a
Pre-Oxygenated: Yes, face mask
Portable Chest X-Ray: n/a
RSI: Yes without cricoid pressure
Suctioned: N/a
Bilateral Breath Sounds Confirmed: Yes
Vent Settings:
Settings per ICU Attending Physician
[2024-10-18] MEDS: DIPRIVAN 100 IV (20:00)
[2024-10-18] MEDS: SUBLIMAZE 50 MCG IV (20:10)
[2024-10-18] MEDS: SUBLIMAZE 100 MCG IV (20:40)
--- NOTE | 2024-10-18 21:08 | W.PN.UPDATE ---
Update Note
Progress Note Update
Patient arrived at�the ICU, unresponsive with a GCS of 3. Decision made to intubate for airway protection due to poor neuro status, large amount of secretions needing to be suctioned, and�vomiting earlier in the day. Patient intubated uneventfully.
Discuss sedation with Doctor Lopez, he wanted to continue ketamine drip. Propofol and fentanyl bolus added for agitation if needed during�MRI.
--- NOTE | 2024-10-18 21:36 | PTCARENOTE ---
Assumed care of pt approx 1899.
1899
Decision made at approx to intubate --> see provider notes for further details.
Anesthesia bedside --> Uneventful intubation approx 1899. --> see provider notes for further details.
2099
Taken to MRI by this Author, Additional AQUACULTURE FARM MANAGER, and OIL DISPENSER uneventfully.
Family updated bedside, all questions answered at this period, Orders and plan of care reviewed with Neurology attending, Clinical Pharmacy, ICU SUDHA.
[2024-10-18 22:29] LABS: Triglycerides 103 mg/dl (10-149)
--- NOTE | 2024-10-18 23:33 | PTCARENOTE ---
Addendum entered by Charles Mittal RN 10/19/24 00:42:
New Ketamine gtt received, Placed in lockbox w. Green controlled sheet behind currently infusing gtt. Currently 2 hours remaining on current drip.
Original Note:
Returned back from MRI approx 2240.
Ceribell placed back on patient.
Discussed w. Clinical pharmacist prior to departure due to the need of priming MRI tubing, new bag of ketamine primed into new primary tubing connected to MRI Pump tubing. Primary tubing approx priming volume 19ml, MRI tubing Approx priming volume
15ml, totaling 34 ML of tubing. Previous ketamine gtt placed in secured med room to be restarted upon returning from MRI.
Called Pharmacy upon return to ICU to discuss wasting plan, due to 34ml of volume in Primary and MRI tubing and the amount pt. received in MRI only small amount remaining in 50ml bag. Discussed with Pharmacist, to waste tubing and remaining bag
amount. New bag to be started upon previous bags completion.
Green controlled form wasted per protocol, and returned to pharmacy. Previous gtt infusing.
[2024-10-19] VITALS (18 sets, daily range): BP systolic 102–155; BP diastolic 56–97; BMI 26.1
[2024-10-19] MEDS: ARICEPT 5 MG TUBE (00:37)
--- NOTE | 2024-10-19 01:24 | PTCARENOTE ---
POC 219 --> pharmacy contacted for Insulin pen.
[2024-10-19 01:33] LABS: Glucose - Point of Care 219 mg/dl (70-99)
[2024-10-19] MEDS: NOVOLOG FLEXPEN-LOW RESISTANCE 2 UNITS SC ×2 (01:46→05:57)
[2024-10-19] MEDS: KETAMINE HCL 50 MG IV (02:16)
[2024-10-19 04:54] LABS: INR 1.08; PT 14.3 Sec (11.4-14.6)
[2024-10-19 04:55] LABS: APTT 30.4 Sec (23.4-35.0)
[2024-10-19 05:13] LABS: Blood Urea Nitrogen 18 mg/dl (9-20); Calcium 9.9 mg/dl (8.4-10.2); Carbon Dioxide 22 mmol/L (22-30); Chloride 106 mmol/L (98-107); Estimated Creatinine Clearance 91 ml/min; Glucose 185 mg/dl (70-99); Magnesium 1.9 mg/dl (1.6-2.3); Potassium 4.1 mmol/L (3.5-5.1); Sodium 137 mmol/L (135-145); eGFR > 60.00
[2024-10-19 05:54] LABS: Glucose - Point of Care 216 mg/dl (70-99)
--- NOTE | 2024-10-19 06:18 | PTCARENOTE ---
Pt maintained on sedation,intubated,VS stable,SB afebrile.Seizure precautions maintained.Pt turned Q2hour.Pt does slowly move his arms against the restraints.Ceribell intact and recording.Family present in room.Close observatiion ongoing.
--- NOTE | 2024-10-19 07:07 | CON.INTV ---
Addendum entered and electronically signed by Tamiko Hua MD 10/19/24 13:52:
Update:
Patient tolerated SAT and SBT very well. Was pulling good tidal volume with normal respiratory rate on pressure support 5 x 5.
Patient was successfully extubated to nasal cannula.
Reevaluation postextubation, patient continued to do well, stable for transfer out of ICU
Direct Mail Clerk service will sign off, please call as needed
Original Note:
Consultation
Consultation Request
Date/Time Consultation Requested: 10/18/2024
Date/Time Consultation Performed: 10/19/2024
Medical History
-
Chief Complaint: Status Epilepticus
History of Present Illness:
Patient is a 59-year-old gentleman with early onset Alzheimer's disease who presented to the emergency room due to change in mentation. Patient reportedly lost control of his limbs and could not talk and had eyes rolled backwards. Patient had
waxing waning mental status in the emergency room. Patient subsequently noted to have seizure which later on progressed to refractory status epilepticus requiring Versed and ketamine push. Patient was admitted to the ICU and in view of very low
GCS score, inability to protect airway, patient was intubated and mechanically ventilated. Patient has been loaded with Keppra, also given Solu-Medrol and was started on ketamine infusion. Direct Mail Clerk consult was requested for further input.
Past Medical History
Past Medical History: Reports Other (Early Onset Alzheimer's Dementia)
Past Surgical History: Reports Orthopedic and Urological (Prostate Cancer)
Social History
Tobacco: Non-smoker
Alcohol: None
Drug: None
Personal:
Living: With Family
Family History
Family History: Other (Lewy Body Dementia)
Allergies / Home Medications
Allergies
Allergy/AdvReac Type Severity Reaction Status Date / Time
sulfite Allergy migraines Verified 10/02/23 10:47
Home Medications
�Medication �Instructions �Recorded �Confirmed �Last Taken �Type
donepezil 5 mg tablet 5 mg PO HS 10/18/24 10/18/24 10/17/24 History
escitalopram oxalate 10 mg tablet 10 mg PO QPM 10/18/24 10/18/24 10/17/24 History
lecanemab-irmb 100 mg/mL 600 mg IV Q2W 10/18/24 10/18/24 Unknown History
intravenous solution (Leqembi)
memantine 10 mg tablet 10 mg PO HS 10/18/24 10/18/24 10/17/24 History
Review of Systems
-
Unable to Obtain full review of systems at this time due to: Patient Intubation
Vitals / Labs / Diagnostic Testing
Vital Signs
Temp Pulse Resp BP Pulse Ox
98 F 67 16 102/91 98
10/19/24 02:00 10/19/24 03:45 10/19/24 03:45 10/19/24 03:00 10/19/24 04:05
Lab Data
10/18/24 11:51
10/19/24 04:33
Laboratory Results
10/19/24
04:33
PT 14.3
INR 1.08
APTT 30.4
Diagnostic Testing:
Physical Exam
-
HEENT: Normocephalic
Cardiovascular: S1/S2
Respiratory: Clear
GI: Soft and Non Distended
Neurology: Other (Currently sedated)
Skin: Warm
General: Comfortable
Assessment
-
#1. Status epilepticus
- Status post IV Versed, Keppra load as well as ketamine push followed by infusion
- Patient currently intubated, sedated and mechanically ventilated to protect airway.
- CT, MRI head and MRI reviewed, no acute abnormality noted.
- Patient has empirically been on steroids concerning for ARIA, will discuss with neurology considering MRI unremarkable
#2. Acute respiratory failure
- Inability to protect airway, patient was intubated on 10/18 due to underlying status epilepticus and GCS of 3
- Continue volume assist-control ventilation, once more awake will initiate SBT
- Once off sedation, will start SAT/SBT with the goal to extubated today if no further seizures noted.
#3. Aspiration pneumonitis/aspiration pneumonia
- Reported aspiration in the setting of status epilepticus and altered mental status
- Chest x-ray also suggestive of atelectasis versus aspiration pneumonia.
- Patient afebrile, no significant ET tube secretions, repeat chest x-ray. Monitor off antibiotics for now
Other medical diagnoses:
- Early onset Alzheimer's dementia
DVT prophylaxis. Add subcu Lovenox
Critical Care time 62 mins -- The patient is admitted for acute critical illness for the treatment of vital organ failure and/or prevention of further life-threatening conditions. Total care includes time spent in review of history, physical exam,
medications, hemodynamic/ventilator parameters, laboratory data, imaging and discussion with house staff, pharmacy, respiratory therapy, business intelligence director, and nursing.
Data:
MRA Brain 09/2024: Subtle blurring and peripheral loss of flow signal involving the petrous and proximal cavernous portions of the left internal carotid artery. This appears to be artifactual, as there appears to be good enhancement and caliber of
these portions of the left internal carotid artery on thin section postcontrast imaging on concurrent MRI the brain.
No significant narrowing of the anterior cerebral and middle cerebral arteries.
Larger caliber superior left vertebral artery compared to the right. No significant narrowing of the basilar artery.
CXR 09/2024: Endotracheal tube with tip 4 cm above the lcuy.
Nasogastric tube extends into the stomach in the left upper quadrant, but tip is off the inferior to the radiograph.
Lungs appear hypoinflated. Patchy parenchymal opacity within both lower lungs, slightly greater on the left compared to the right, with main differential considerations of atelectasis and/or pneumonia.
CT head 09/2024: No acute intracranial abnormality.
--- NOTE | 2024-10-19 07:30 | PTCARENOTE ---
Received patient ET to vent @ FiO2 40%, Arousable to voice and pain stimuli, Ceribell in place, 0% seizure activity, on Ketamine Drip @0.7mg/kg/hr, NSR, BP WNL, OBT to LIS, Richardson in place.
--- NOTE | 2024-10-19 08:00 | PTCARENOTE ---
Neuro Dr. Green at bedside, started SAT and SBT, plan to extubate today.
[2024-10-19] MEDS: MIRALAX 17 GRAMS TUBE (08:33)
[2024-10-19] MEDS: KEPPRA 1000 MG IV ×2 (08:33→20:18)
--- NOTE | 2024-10-19 08:34 | W.PN.HOSP.TC ---
Addendum entered and electronically signed by Kris Walker MD 10/19/24 21:00:
Attending Addendum-I saw and evaluated the patient. I reviewed the resident�s note and agree with findings and plan as documented in the resident�s note. Sub: Patient seen with family. Just extubated. Seen with Dr. Green. Patient groggy and not
responsive yet. ROS unable to be reviewed due to LOC Exam- vitals reviewed in EMR GEN- NAD heart RRR lungs clear abd soft LE no edema
Plan:
# Refractory Status Epilepticus
- intubated to protect airway 10/19, extubated 10/20
- weaned off sedation
- seizure x 30 mins in ED
- elevated CPK
- no further seizure activity
- cont keppra, ketamine dc'd
- appreciate neuro input
- DC solumedrol- imaging not suggestive of ARIA-E
- check MRI MRA w/w/o contrast and EEG -No evidence of acute intracranial abnormality or seizure activity
- transfer to tele
# Early Onset Alzheimer disease
- cont memantine and donepezil
# Depression
-cont lexapro
#H/O prostate ca
DVT proph-lovenox
Dispo patient family requesting transfer to [facility]- transfer initiated but likely DC home in am
Time spent coordinating care, review of plan of care with resident, personally reviewed records in EMR, med rec, consults, notes, labs, radiology, d/w nursing ICU neuro family � 55 mins
Original Note:
Today's Communication/Plan
-
Breathing trial for possible extubation
Discuss during rounds with family and medical team regarding possible transfer
Continue monitoring for any seizure activity and give ketamine as needed
Assessment / Plan
Assessment / Plan
Assessment:
59 year old male with a past medical history of early onset Alzheimer's dementia comes to the ED due to recent change in mental status. Patient was found to very nonresponsive at first in the ED, not conversant at all. His symptoms seem to resolve
and he returned almost back to his baseline with some mild slurring of speech. Labs and CT head were unremarkable. While in the ED, patient developed status epilepticus requiring ketamine drip and eventual ICU admission. Required intubation due to
worsening respiratory status. Had MRI this morning alongside continuous EEG monitoring which showed improvement in seizure activity.
Plan:
# Refractory status epilepticus
# Respiratory arrest requiring intubation following seizures
- MRA, MRI findings do not show any intracranial or intravascular abnormality or edema
- Will continue Keppra, follow neuro recommendations
- EEG does not show any further seizure activity
- Patient was on ketamine drip, will discontinue drip and allow patient to extubate today
- Will discuss with loan workout officer and neuro regarding further management of disease
- Unclear origin SEIZURE activity, may be related to worsening Alzheimer's versus medication side effect
# Early onset Alzheimer's dementia
- Continue memantine and donepezil
# Increased creatinine kinase
- Most likely secondary to seizure activity
# Depression
- Continue Lexapro
Full code
DVT prophylaxis: Lovenox
Anticipated Discharge: 24 - 48 hours
Subjective/Interval History
-
Date of Service: October 19, 2024
Patient seen while intubated, no family around him. No reported seizure activity overnight, but continues to be intubated. Has some reactions to name being called. Was able to react to stimulation. Breathing well on ventilator support, heart
rate seems to be normal.
Objective Data
-
Labs:
Laboratory Results
10/19/24
04:33
PT 14.3
INR 1.08
APTT 30.4
Sodium 137
Potassium 4.1
Chloride 106
Carbon Dioxide 22
BUN 18
Creatinine 0.9
Glucose 185 H
Calcium 9.9
Vital Signs:
Vital Signs
Temp Pulse Resp BP Pulse Ox
98.9 F 67 16 102/91 97
10/19/24 08:00 10/19/24 03:45 10/19/24 03:45 10/19/24 03:00 10/19/24 08:23
I&O
10/18/24 10/19/24 10/20/24
06:59 06:59 06:59
Intake Total 1165.1 / 1165.1
Output Total 2059
Balance -894.9 / -894.9
Review of Systems
-
Unable to obtain full review of systems at this time due to: Patient Intubation
Physical Exam
-
General: Intubated
HEENT: Normocephalic and Atraumatic
Respiratory: Clear to Auscultation
Cardiac: Regular Rhythm and S1/S2
GI: Soft and Nondistended
Musculoskeletal: No Clubbing, No Cyanosis and No Edema
Neuro: Sedated and Other (Mildly responsive to stimulation, heavily sedated)
Psych: Other (Mildly responsive)
Data Reviewed
-
MRI: Report Reviewed by me, Discussed with Physician and Discussed with Family
Labs: Labs Reviewed by me, Discussed with Physician and Discussed with Family
[2024-10-19 08:41] LABS: Glycohemoglobin (HgbA1c) 5.3 % (4.0-5.6)
--- NOTE | 2024-10-19 08:51 | W.PN.NEURO.1 ---
Today's Communication / Plan
-
dc Ceribell
Ketamine turned off, then restarted at 0.3 due to agitation
D/C Solumedrol as no ARIA seen on MRI
continue Keppra 1000 BID
extubate when able
Neuro Assessment/Plan
Assessment
MRI without focal lesion, No evidence of ARIA, no edema, no hemorrhage. atrophy which slightly progressed since prior exam
MRA head normal
Ceribell EEG no seizures
59 yr old man with Alz, on [place], admitted for altered mental status and first time seizure. Suspected seizure due to ARIA-E as no hemorrhage seen on head CT. while still in the ED he went into refractory status epilepticus which ultimately
resolved after Versed 15 and Ketamine 1.5/kg push.
dc Ceribell
Ketamine turned off, then restarted at 0.3 due to agitation
D/C Solumedrol as no ARIA seen on MRI
continue Keppra 1000 BID
extubate when able
all questions answered
Subjective/Objective
Subjective Data
Date of Service: October 19, 2024
overnight remained on Ketamine 0.7mg/kg/hr no further seizures on Ceribell.
remains intubated
this morning patient following commands
Objective Data
Vital Signs
Temp Pulse Resp BP Pulse Ox
37.2 C 67 16 102/91 97
10/19/24 08:00 10/19/24 03:45 10/19/24 03:45 10/19/24 03:00 10/19/24 08:23
Lab Results
10/18/24 11:51
10/19/24 04:33
PT 14.3 Sec (11.4-14.6) 10/19/24 04:33
INR 1.08 10/19/24 04:33
APTT 30.4 Sec (23.4-35.0) 10/19/24 04:33
Sodium 137 mmol/L (135-145) 10/19/24 04:33
Potassium 4.1 mmol/L (3.5-5.1) 10/19/24 04:33
BUN 18 mg/dl (9-20) 10/19/24 04:33
Glucose 185 mg/dl (70-99) H 10/19/24 04:33
Calcium 9.9 mg/dl (8.4-10.2) 10/19/24 04:33
Patient Allergies
sulfite Allergy (Verified 10/02/23 10:47)
migraines
Physical Exam
-
RASS +1
following commands
moving all extremities
--- NOTE | 2024-10-19 10:40 | PTCARENOTE ---
Patient extubated @10:40, families at bedside, all questions answered.
--- NOTE | 2024-10-19 10:53 | RESPNOTE ---
Pt extubated to room air at 10:40, from CPAP 5 PS 5 40% without adversity.
--- NOTE | 2024-10-19 10:58 | EEGC.RPT ---
Continuous EEG Report
Recording
Start Date of Data Reviewed: 10/18/24
Start Time of Data Reviewed: 17:48
End Date of Data Reviewed: 10/19/24
End Time of Data Reviewed: 08:48
Type of EEG: Continuous
Done with Video Recording: No
Study Sequence: Initiation of Study
Electrocardiogram: Unremarkable
Report
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 Seizure broke after Versed 15 and Ketamine 1.5
Meds include Keppra 1000 BID and Ketamine gtt @0.7
Introduction: An emergent EEG was done using Cyveraell device in the ED and continued in ICU.
duration was 14 hrs 9 mins
Background: In the most alert state, the there is continuous generalized slowing with low amplitude polymorphic delta activity and some overriding alpha and beta activity. There is spontaneous variability and reactivity. A normal amount of eye blink
artifacts in awake.
Sleep: No sleep is seen.�
Focal/epileptiform: There were no focal or epileptiform discharges. No clinical or electrographic seizures occurred during this recording.
Impression: Moderate generalized cerebral dysfunction
[2024-10-19 12:00] LABS: Glucose - Point of Care 175 mg/dl (70-99)
[2024-10-19] MEDS: NOVOLOG FLEXPEN-LOW RESISTANCE 1 UNITS SC (12:25)
--- NOTE | 2024-10-19 12:30 | PTCARENOTE ---
Reassessed the patient, sleeping but arousable from voice, no seizure activities seen, on RA, SpO2 @95%.
Josephine and daughters requested to transfer to [facility] for neurologist with EEG/Seizure specialty and additional testings. Made Dr. Walker and Dr. Peralta aware of family request transfer.
Dr. Peralta communicated with at bedside, she was hesitated to transfer at this time as patient's seizure condition stabilized. Josephine was informed that our doctor will initiate transfer when she makes a decision.
--- NOTE | 2024-10-19 14:30 | PTCARENOTE ---
Josephine decided to request transfer to [facility], made Dr. Peralta aware.
--- NOTE | 2024-10-19 15:04 | CM ---
manager technical reviewed patient's chart and met with patient and spoke with patient's spouse by phone, Patient has been diagnosed with early onset Alzheimers/dementia and is followed by Neurology at [facility], patient receives infusion through
neurology office at [facility] every 2 weeks per spouse. Patient lives with spouse in a 2 story home, patient is independent with adl's and ambulation, no dme, patient does not drive.
PCP: Angella Farrell
Pharmacy; [facility] in [place]
Plan; Per spouse patient and spouse are interested in hospital to hospital transfer.
--- NOTE | 2024-10-19 15:09 | W.PN.UPDATE ---
Update Note
Progress Note Update
Patient extubated and has been somnolent. He has had no further seizure activity this morning. Was downgraded from ICU level care. After lengthy discussion with the patient family, patient would want to transfer him to [facility] for further
management. Will call the transfer center and see if they will accept patient.
Transfer center said they would call back for potential transfer but did not. Patient's family in agreement to continue to stay overnight. Patient passed initial swallow test with water. Will give him a clear liquid diet to see if he tolerates. Will
switch meds to PO from tube. PT/OT and Case management ordered for tomorrow. Family want information regarding home health aides.
--- NOTE | 2024-10-19 15:57 | PTCARENOTE ---
pt transferred to room from ICU via bed. pt confused to time. forgetful. denies pain, vss, oriented to new room and call jones, vss, seizure precautions maintained, family at bedside. will continue to monitor.
--- NOTE | 2024-10-19 17:04 | EEG.RPT ---
Electroencephalogram Report
Recording
Date of EE10/19/24
Type of EEG: Routine
Length of EEG recordin mins
Done with Video Recording: No
Patient Status: Inpatient
Recording Conditions: Awake
Hyperventilation Performed: No
Photic Stimulation Performed: Yes
Report
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 drips are weaned off and he is extubated.
routine EEG obtained after Ceribell to evaluate for interictal epileptiform abnormalities. Meds include Keppra.
Introduction: A routine bedside EEG was done using [employer] 10-20 electrode placement protocol.
Background: In the most alert state, there is continuous low amplitude polymorphic delta activity. There is spontaneous variability and reactivity.�
Sleep: No sleep is seen.�
Focal/epileptiform: There were no focal or epileptiform discharges. No clinical or electrographic seizures occurred during this recording.
Photic stimulation: resulted in no change. There was no photo myogenic or photoparoxysmal response.�
Impression: Moderate generalized cerebral dysfunction.
[2024-10-19 17:47] LABS: Glucose - Point of Care 135 mg/dl (70-99)
[2024-10-19] MEDS: NOVOLOG FLEXPEN-LOW RESISTANCE SC (18:07)
[2024-10-19] MEDS: LEXAPRO 10 MG PO (18:11)
[2024-10-19] MEDS: LOVENOX 40 MG SC (18:11)
--- NOTE | 2024-10-19 19:38 | PTCARENOTE ---
pt tolerating clear liquids, but requesting food. explained that it is necessary to go slow since he hasn't been eating and to make sure he keeps it down. Also, patient reports posterior headache, unable to rate pain level. next shift LENI Do
made aware to follow up, will continue to monitor.
[2024-10-19] MEDS: TYLENOL 1000 MG PO (20:17)
[2024-10-19 21:43] LABS: Glucose - Point of Care 152 mg/dl (70-99)
[2024-10-19] MEDS: ARICEPT 5 MG PO (21:56)
[2024-10-20 03:08] VITALS: BP 179/82
[2024-10-20 06:35] LABS: Hematocrit 39.8 % (39.0-52.0); Hemoglobin 13.5 g/dL (13.0-18.0); Mean Corp Hgb Conc. 33.9 g/dL (33.0-37.0); Mean Corpuscular Volume 85.0 fL (80.0-94.0); Nucleated Red Blood Cells % 0 % (-); Platelet Count 209 10^3/uL (130-400); Red Cell Dist. Width 12.2 % (11.5-14.5)
[2024-10-20 06:55] LABS: ALT (SGPT) 17 U/L (0-50); AST (SGOT) 23 U/L (17-59); Albumin 4.0 g/dl (3.5-5.0); Alkaline Phosphatase 47 U/L (38-126); Blood Urea Nitrogen 23 mg/dl (9-20); Calcium 9.8 mg/dl (8.4-10.2); Carbon Dioxide 26 mmol/L (22-30); Chloride 106 mmol/L (98-107); Estimated Creatinine Clearance 74 ml/min; Glucose 118 mg/dl (70-99); Potassium 4.3 mmol/L (3.5-5.1); Sodium 140 mmol/L (135-145); Total Protein 6.3 g/dl (6.3-8.2); eGFR > 60.00
[2024-10-20 07:30] VITALS: BP 131/76
[2024-10-20 07:59] LABS: Glucose - Point of Care 102 mg/dl (70-99)
--- NOTE | 2024-10-20 08:19 | W.PN.HOSP.TC ---
Addendum entered and electronically signed by Kris Walker MD 10/20/24 22:58:
Attending Addendum-I saw and evaluated the patient. I reviewed the resident�s note and agree with findings and plan as documented in the resident�s note. Sub: Patient seen with . back to baseline mentation. per having some facial / jaw
twitching. No further seizure episodes.ROS full 10 point ROS reviewed and negative. Exam- vitals reviewed in EMR GEN- NAD heart RRR lungs clear abd soft LE no edema Neuro AAO x 3 poor memory recal mild right intermittent jaw clenching
Plan:
# Refractory Status Epilepticus
- intubated to protect airway 10/19, extubated 10/20
- seizure x 30 mins in ED
- mild elevated CPK
- no further seizure activity
- keppra transitioned to vimpat due to neuro psych side effects
- appreciate neuro input
- DC'd solumedrol- imaging not suggestive of ARIA-E
- MRI MRA w/w/o contrast and EEG -No evidence of acute intracranial abnormality or seizure activity
- repat EEG prior to DC
- f/u as OP with neuro
# Early Onset Alzheimer disease
- cont memantine and donepezil
# Depression
-cont lexapro
#H/O prostate ca
DVT proph-lovenox
Dispo patient family requested transfer to [facility]- transfer initiated - stable for DC home today d/w neuro ok with OP follow UP
Time spent coordinating care, DC planning, review of DC plan of care with resident, transition of care, review of records, med rec/scripts sent electronically, consults, notes, d/w consultants, nursing, family, neuro and CM� 32 mins >50% of this
time was devoted to counseling and coordination of care
Original Note:
Today's Communication/Plan
-
Speech eval
Advance diet as possible
PT OT eval
Continue Keppra, monitor for seizure activity
Possible discharge today pending case management
Assessment / Plan
Assessment / Plan
Assessment:
59 year old male with a past medical history of early onset Alzheimer's dementia comes to the ED due to recent change in mental status. Patient was found to very nonresponsive at first in the ED, not conversant at all. His symptoms seem to resolve
and he returned almost back to his baseline with some mild slurring of speech. Labs and CT head were unremarkable. While in the ED, patient developed status epilepticus requiring ketamine drip and eventual ICU admission. Required intubation due to
worsening respiratory status. Patient had MRI which did not show any acute findings. With the seizures activity resolved, was able to be extubated successfully and moved down to [facility]. Has not had any seizure activity since.
Plan:
# Refractory status epilepticus
# Respiratory arrest requiring intubation following seizures
- MRA, MRI findings do not show any intracranial or intravascular abnormality or edema
- Unclear origin SEIZURE activity, may be related to worsening Alzheimer's versus medication side effect
- Patient now off the ketamine drip, has been seizure-free
- Continuing on Keppra 1000 mg twice a day
- Was able to pass initial swallowing study yesterday and was started on clear liquid diet which she has been able to tolerate
- Will await for speech evaluation today to advance diet
- PT/OT eval today for dispo planning as well
- Will reach out to case management as family needs help with home health aide in the future.
- If continues to be stable, can be discharged today, I will have to follow-up with epilepsy specialist outpatient
# Early onset Alzheimer's dementia
- Continue memantine and donepezil
# Increased creatinine kinase
- Most likely secondary to seizure activity
- Decreased today
# Depression
- Continue Lexapro
Full code
DVT prophylaxis: Lovenox
Anticipated Discharge: Today
Subjective/Interval History
-
Date of Service: October 20, 2024
Patient seen this morning, reported no adverse overnight events. Did not have any seizure activity, is a lot more responsive from yesterday. Said that he did not have any headaches or any other problems, said that he has no recollection of the
events for the past couple days, says he had blacked out. Slight difficulty with speech, but as per his in the room he was having trouble before as well. Reported some mild gastric reflux but otherwise has been feeling better. No nausea,
vomiting or any other abdominal symptoms.
Objective Data
-
Labs:
Laboratory Results
10/20/24
05:38
WBC 10.7
Hgb 13.5
Hct 39.8
Plt Count 209
Sodium 140
Potassium 4.3
Chloride 106
Carbon Dioxide 26
BUN 23 H
Creatinine 1.1
Glucose 118 H
Calcium 9.8
Total Bilirubin 0.8
AST 23
ALT 17
Alkaline Phosphatase 47
Vital Signs:
Vital Signs
Temp Pulse Resp BP Pulse Ox
98.3 F 58 16 179/82 96
10/20/24 03:08 10/20/24 03:08 10/20/24 03:08 10/20/24 03:08 10/20/24 03:08
I&O
10/19/24 10/20/24 10/21/24
06:59 06:59 06:59
Intake Total 1165.1 / 1175.2 1217.3 / 1217.3
Output Total 2059 650 / 650
Balance -894.9 / -914.8 567.3 / 567.3
Review of Systems
-
History Source: Patient and Family
Constitutional: Reports No Symptoms
EENT: Reports Sore Throat
Respiratory: Reports No Symptoms
Cardiac: Reports No Symptoms
Abdomen/GI: Reports GERD
Genitourinary: Reports No Symptoms
Musculoskeletal: Reports No Symptoms
Skin: Reports No Symptoms
Neuro: Reports No Symptoms
Physical Exam
-
General: Well Developed, Well Nourished, No Apparent Distress and Comfortable
HEENT: Normocephalic and Atraumatic
Respiratory: Clear to Auscultation and Non Labored Respirations
Cardiac: Regular Rhythm and S1/S2
GI: Soft, Nontender and Nondistended
Musculoskeletal: No Clubbing, No Cyanosis and No Edema
Skin: Warm and Dry
Neuro: Awake, Alert, Oriented, AO x 3 and Other (Mild slurring of speech, difficulty articulating at time)
Psych: Calm and Intact Judgement/Insight
Data Reviewed
-
Labs: Labs Reviewed by me, Discussed with Physician and Discussed with Patient
--- NOTE | 2024-10-20 08:45 | PTOTSP ---
Speech Language Pathology
Pt seen for clinical bedside swallow evaluation. present at bedside. No hx of dysphagia. Strained vocal quality noted, which reported has been improving since extubation. P.O. trials of puree, regular solids, and thin liquids provided.
Adequate mastication, bolus formation, and A-P transit noted with no oral residue. Pt denied any globus sensation. No overt signs of aspiration. Pt is at increased risk for aspiration given recent extubation and Alzheimer's dementia, but had no
overt signs of difficulty during evaluation. Will monitor.
Recommend:
(1) Regular solids/thin liquids
(2) General aspiration precautions
(3) Meds as tolerated
(4) LOTTERIES AGENT to continue to follow
[2024-10-20] MEDS: KEPPRA 1000 MG IV (09:41)
[2024-10-20] MEDS: PROTONIX 20 MG PO (09:42)
[2024-10-20] MEDS: MIRALAX 17 GRAMS PO (09:42)
[2024-10-20 10:49] VITALS: BP 152/86; PULSE 60
[2024-10-20 10:51] VITALS: BP 152/86; PULSE 60; O2SAT 96
--- NOTE | 2024-10-20 11:00 | PTOTSP ---
Pt is able to get OOB and ambulate in hallway and climb stairs all with supervision for safety due to dementia. He appears to be back to his baseline. Ok for dc to home from PT standpoint. PT will sign off.
[2024-10-20 11:30] VITALS: BP 138/70
--- NOTE | 2024-10-20 11:38 | CM ---
CM met with Diego and his Josephine. Diego has early onset alzheimers disease and is functionally capable, however requires constant supervision.
Caregiver list provided to Josephine; she has been looking into agencies to provide care in the home for her and was appreciative for the list.
Plan: Pt will return home with his and private caregiver agency once the agency of choice is identified.
[2024-10-20] MEDS: VIMPAT 200 MG PO (13:28)
[2024-10-20 13:32] LABS: Glucose - Point of Care 85 mg/dl (70-99)
[2024-10-20 16:00] VITALS: BP 160/81
[2024-10-20 16:59] LABS: Glucose - Point of Care 83 mg/dl (70-99)
[2024-10-20] MEDS: LEXAPRO 10 MG PO (17:02)
[2024-10-20] MEDS: LOVENOX SC (17:13)
--- NOTE | 2024-10-20 17:23 | W.DCSUMMARY ---
Addendum entered and electronically signed by Kris Walker MD 10/20/24 22:58:
Read, reviewed, and agree. See same day progress note for additional details.
Shaan Walker MD
Original Note:
Documented by User: Houston Peralta MD, Resident 10/20/24 17:32
Discharge Summary
Discharge Data
Date of Admission: 10/18/24
Date of Discharge: 10/20/24
-
Pending Results: No
Hospital Course
Discharging Physician : Dr. Houston Peralta, Dr. Kris Walker
�
Disposition�:�Home
�
Primary�care�physician�: Dr. Angella Farrell
�
Principal�Discharge�Diagnosis�:�
Refractory status epilepticus
Chronic�Discharge�Diagnosis:�
Early onset Alzheimer's disease
Depression
Prostate cancer history
Hospital�Course�:��
59 year old male with a past medical history of early onset Alzheimer's dementia came to the [facility] ED due to recent change in mental status. Patient was found to very nonresponsive at first in the ED, not conversant at all. His symptoms seem to
resolve and he returned almost back to his baseline with some mild slurring of speech. Labs and CT head were unremarkable. While in the ED, patient developed status epilepticus requiring ketamine drip and eventual ICU admission. Required
intubation due to worsening respiratory status. Patient had MRI which did not show any acute findings or evidence of edema which may have correlated to ARIA-E. With the seizures activity resolved, was able to be extubated successfully and moved
down to [facility] floor. Had not had any seizure activity since. Patient was initially on Keppra 1000 mg twice a day but was later switched to lacosamide 200 mg twice a day for seizure prophylaxis. Dr. Green spoke with Dr. Colindres, patient's
neurologist and the plan is for the patient to continue with antiseizure medication, closely follow-up with neurology in the future as the seizures are thought to be heavily related to his Alzheimer's disease. Dr. Colindres will hopefully also
prescribe a specific benzodiazepine nasal spray (Nayzilam) that is indicated for seizure breakthrough. Overall patient is doing well and was discharged home with resources available for him and his family to help with seizure management.
Important�imaging�findings�:��
MRA: Subtle blurring and peripheral loss of flow signal involving the petrous and proximal cavernous portions of the left internal carotid artery. This appears to be artifactual, as there appears to be good enhancement and caliber of these portions
of the left internal carotid artery on thin section postcontrast imaging on concurrent MRI the brain.
MRI with and without contrast: No evidence of acute intracranial abnormality. Atrophy and ventricular dilation which has slightly increased since MRI of the brain of August 11, 2023.
Procedure�findings�:��N/A
�
Discharge Plan
-
Patient Disposition: Home (Routine Discharge)
Discharge Diagnosis/Procedures: Refractory Status Epilepticus
Early Onset Alzheimer's Dementia
Condition: Fair
Diet: No restrictions
Activity: As tolerated
Driving Restrictions: No driving
Bathing Restrictions: None
Referrals:
Angella Farrell MD [Family Provider, Family Practice] - in less than 1 week
Referral Note: Please follow up with your PCP in less than one week
Brian Chery MD [Non-Admitting Privileges, Psychiatry] - in one to two weeks
Referral Note: Please follow up with your Neurologist for further management.
Additional Discharge Medication Instructions: Please take Lacosamide 200mg Twice a day
Please follow up with your Neurologist and PCP for further management
You can continue taking your other Alzheimer's medications
Please monitor for any signs of seizure activity at home
Prescriptions:
New
lacosamide 200 mg Tablet
200 mg PO BID 14 Days Qty: 28 0RF
Continued
donepezil 5 mg Tablet
5 mg PO HS
escitalopram oxalate 10 mg Tablet
10 mg PO QPM
memantine 10 mg Tablet
10 mg PO HS
Held
Leqembi 100 mg/mL Solution
600 mg IV Q2W
Hold Instructions: Follow up with Dr. Chery regarding if medication needs to resume
Discharge Orders:
Discharge Patient (As Directed); Ordered 10/20/24
Ordered By: Houston Peralta
Discharge Date and Time
Discharge Date/Time: 10/20/24 18:31
Print Language: LITHUANIAN

Documented by User: Kris Walker MD 10/20/24 22:53
Discharge Summary
Discharge Data
Date of Admission: 10/18/24
Date of Discharge: 10/20/24
Discharge Plan
-
Patient Disposition: Home (Routine Discharge)
Discharge Diagnosis/Procedures: Refractory Status Epilepticus
Early Onset Alzheimer's Dementia
Condition: Fair
Diet: No restrictions
Activity: As tolerated
Driving Restrictions: No driving
Bathing Restrictions: None
Referrals:
Angella Farrell MD [Family Provider, Family Practice] - in less than 1 week
Referral Note: Please follow up with your PCP in less than one week
Brian Chery MD [Non-Admitting Privileges, Psychiatry] - in one to two weeks
Referral Note: Please follow up with your Neurologist for further management.
Additional Discharge Medication Instructions: Please take Lacosamide 200mg Twice a day
Please follow up with your Neurologist and PCP for further management
You can continue taking your other Alzheimer's medications
Please monitor for any signs of seizure activity at home
Prescriptions:
New
lacosamide 200 mg Tablet
200 mg PO BID 14 Days Qty: 28 0RF
Continued
donepezil 5 mg Tablet
5 mg PO HS
escitalopram oxalate 10 mg Tablet
10 mg PO QPM
memantine 10 mg Tablet
10 mg PO HS
Held
Leqembi 100 mg/mL Solution
600 mg IV Q2W
Hold Instructions: Follow up with Dr. Chery regarding if medication needs to resume
Discharge Orders:
Discharge Patient (As Directed); Ordered 10/20/24
Ordered By: Houston Peralta
Discharge Date and Time
Discharge Date/Time: 10/20/24 18:31
Print Language: LITHUANIAN
== END 2024-10-20 18:31 | disposition home or self-care (01) | DRG 100 ==
LOC: 3 WEST ACU 16:47
PROVIDERS: Nurse Practitioner Primary Care; Physician Assistant; Student in an Organized Health Care Education/Training Program; ADMITTING PHYSICIAN Family Medicine; CONSULT PHYSICIAN Internal Medicine; CONSULT PHYSICIAN Psychiatry & Neurology Clinical Neurophysiology; EMERGENCY PHYSICIAN Emergency Medicine; FAMILY PHYSICIAN Family Medicine
PROC: 0BH18EZ Insertion of Endotracheal Airway into Trachea, Via Natural or Artificial Opening Endoscopic (ICD-10-PCS; 2024-10-18)
PROC: 5A1935Z Respiratory Ventilation, Less than 24 Consecutive Hours (ICD-10-PCS; 2024-10-18)
DX: G40.911 Epilepsy, unspecified, intractable, with status epilepticus (principal); J69.0 Pneumonitis due to inhalation of food and vomit; R09.2 Respiratory arrest; F02.83 Dementia in other diseases classified elsewhere, unspecified severity, with mood disturbance; G30.0 Alzheimer's disease with early onset; F32.A Depression, unspecified; Z85.46 Personal history of malignant neoplasm of prostate; Z88.2 Allergy status to sulfonamides; Z81.8 Family history of other mental and behavioral disorders; Z79.899 Other long term (current) drug therapy
CPT/HCPCS: 70450; 70544; 70553; 71045; 80048; 80053; 80306; 81003; 81015; 82550; 82962; 83036; 83735; 84439; 84443; 84478; 84484; 85025; 85610; 85730; 92610; 93005; 94002; 94003; 95708; 95816; 97163; 97166; 99285; A9575